=== PATIENT | male | born 1965 | race Caucasian/White ===

== ENCOUNTER 2017-08-10 08:38 | Day surgery (SDC) | payer OTHER ==
[2017-08-10] MEDS ORDERED: Lactated Ringers 1,000 ML IV ONE (08:39)
[2017-08-10] MEDS ORDERED: XYLOCAINE-MPF 1% 5ML SDV IJ ONE (08:39)
[2017-08-10] MEDS ORDERED: Marcaine 0.5% SDV 10 ML IJ ONE (08:39)
[2017-08-10] MEDS ORDERED: LIDOCAINE HCL 2% 100 MG/5 ML IJ ONE (08:39)
[2017-08-10] MEDS ORDERED: DIPRIVAN 200 MG/20 ML IV ONE (08:39)
--- NOTE | 2017-08-10 13:24 | XRAY ---
Indication: Left L4-L5 MBB. Intraoperative fluoroscopy was provided for 35 seconds. 2 digital spot images submitted for interpretation demonstrates 2 posterior spinal needle tips projecting over the left L3-L4 and L4-L5 facets. Correlate with intraoperative findings/report. Incidental bilateral L4-S1 posterior spinal hardware.
--- NOTE | 2017-08-10 13:32 | XRAY ---
35 seconds fluoroscopy time in surgery for left facet L4-L5 MBB.
--- NOTE | 2017-08-11 08:36 | OP ---
DATE OF PROCEDURE: 08/10/2017 1046 SURGEON: Dominique King D.O. PREOPERATIVE DIAGNOSIS: Degenerative lumbar spine disease, spondylosis, low back pain. POSTOPERATIVE DIAGNOSIS: Degenerative lumbar spine disease, spondylosis, low back pain. PROCEDURE PERFORMED: Left L4, L3 medial branch block under fluoroscopic guidance. DESCRIPTION OF THE PROCEDURE: The patient was taken to the operating room and placed in the prone position on the table. Skin at the injection site was prepped and draped in sterile fashion. Under fluoroscopy, bony anatomy of the targeted injection site was visualized. Induction agent was given as per anesthesia while vital signs were monitored. Local anesthetic agent of 0.5 cc of 1% lidocaine preservative free was introduced to anesthetize the skin and the subcutaneous tissue through the injection site. Under fluoroscopic guidance, a #20 gauge standard spinal needle was advanced into the target medial branch through the oblique approach. The preservative free 0.5 cc of 1% lidocaine and 0.5 cc of 0.25% Marcaine were injected into each of the targeted medial branch nerve. After the needle was being removed, the skin was cleansed with alcohol and then a bandage was applied. No complications or adverse consequences were observed. The patient was returned to the holding area until stabilized before discharge to home. After the procedure there is 70 to 80% pain reduction after the procedure. The patient will be followed up within ten days after the injection for re-evaluation.
== END 2017-08-10 11:35 | disposition home or self-care (01) ==
LOC: SDC-PAIN 08:38
PROVIDERS: ATTEND Internal Medicine
DX: M46.96 Unspecified inflammatory spondylopathy, lumbar region (principal); M96.1 Postlaminectomy syndrome, not elsewhere classified; M62.838 Other muscle spasm; Z79.891 Long term (current) use of opiate analgesic
CPT/HCPCS: 64493; 64494; 72020; 77003; J2704

== ENCOUNTER 2017-09-14 07:34 | Day surgery (SDC) | payer OTHER ==
[2017-09-14] MEDS ORDERED: Xylocaine 1% Vial 30 ML PF IJ ONE (07:35)
[2017-09-14] MEDS ORDERED: Marcaine 0.5% SDV 10 ML IJ ONE (07:35)
[2017-09-14] MEDS ORDERED: DIPRIVAN 200 MG/20 ML IV ONE (07:35)
[2017-09-14] MEDS ORDERED: Lactated Ringers 1,000 ML IV ONE (09:55)
--- NOTE | 2017-09-14 13:08 | XRAY ---
Indication: Left L4-L5 MBB. Intraoperative fluoroscopy was provided for 58 seconds. 3 digital spot images submitted for interpretation demonstrates 2 posterior spinal needle tips projecting over the left L3-L4 and L4-L5 facets. Correlate with intraoperative findings/report. Incidental bilateral L4-S1 posterior spinal hardware.
--- NOTE | 2017-09-15 08:12 | OP ---
DATE OF PROCEDURE: 09/14/2017 0857 SURGEON: Dominique King D.O. PREOPERATIVE DIAGNOSIS: Degenerative lumbar spine disease, spondylosis, low back pain. POSTOPERATIVE DIAGNOSIS: Degenerative lumbar spine disease, spondylosis, low back pain. PROCEDURE PERFORMED: Left L4 L3 medial branch block under fluoroscopic guidance. DESCRIPTION OF THE PROCEDURE: The patient was taken to the operating room and placed in the prone position on the table. Skin at the injection site was prepped and draped in sterile fashion. The local anesthetic agent used is 9 cc local anesthetic agent of 1% lidocaine to anesthetize skin. . Under fluoroscopic guidance, a #20 gauge standard spinal needle was advanced into the target medial branch through the oblique approach. Under fluoroscopy, bony anatomy of the targeted injection site was visualized. Induction agent was given as per anesthesia while vital signs were monitored. The medications used for this block includes 0.5 cc of half volume of preservative-free 1% lidocaine plus mixed half volume 0.5 cc of Marcaine. After the needle was being removed skin was cleansed with alcohol and then a bandage was applied. No complications or adverse consequences were observed. The patient was returned to the holding area until stabilized before discharge to home. Preoperative pain level is 10 out of 10 and postoperative pain level is 0 out of 10. The patient will be followed up within ten days after the injection for re-evaluation.
== END 2017-09-14 09:50 | disposition home or self-care (01) ==
LOC: SDC-PAIN 07:34
PROVIDERS: ATTEND Internal Medicine
DX: M25.512 Pain in left shoulder (principal); M46.96 Unspecified inflammatory spondylopathy, lumbar region; M96.1 Postlaminectomy syndrome, not elsewhere classified; M54.5 Low back pain; M62.838 Other muscle spasm; Z79.891 Long term (current) use of opiate analgesic
CPT/HCPCS: 64493; 64494; 72020; 77003; 82962; J2001; J2704

== ENCOUNTER 2017-12-21 07:47 | Day surgery (SDC) | payer MEDICARE ==
[2017-12-21] MEDS ORDERED: Depo-Medrol 40 MG/ML IM ONE (07:48)
[2017-12-21] MEDS ORDERED: DIPRIVAN 200 MG/20 ML IV ONE (07:48)
[2017-12-21] MEDS ORDERED: LIDOCAINE HCL 2% 100 MG/5 ML IJ ONE (07:48)
[2017-12-21] MEDS ORDERED: Lactated Ringers 1,000 ML IV ONE (08:34)
--- NOTE | 2017-12-21 12:11 | XRAY ---
Indication: Bilateral L3-S1 MBB. Intraoperative fluoroscopy was provided for 1 minutes 6 seconds. 2 digital spot images submitted for interpretation demonstrates posterior spinal needles with the tips projecting over the expected course of the L3, L4, L5, and S1 nerve roots bilaterally. Correlate with intraoperative findings/report. Incidental bilateral L4-S1 posterior spinal hardware.
--- NOTE | 2017-12-22 17:09 | XRAY ---
1 minute 6 seconds fluoroscopy used in surgery for bilateral L3, L4, L5, and S1 MBB.
== END 2017-12-21 10:00 | disposition home or self-care (01) ==
LOC: SDC-PAIN 07:47
PROVIDERS: ATTEND Psychiatry & Neurology Pain Medicine
DX: M54.5 Low back pain (principal); M47.816 Spondylosis without myelopathy or radiculopathy, lumbar region; M46.96 Unspecified inflammatory spondylopathy, lumbar region
CPT/HCPCS: 64493; 64494; 64495; 72100; 77002; J1030; J2704

== ENCOUNTER 2018-02-22 07:56 | Day surgery (SDC) | payer MEDICARE ==
[2018-02-22] MEDS ORDERED: DIPRIVAN 200 MG/20 ML IV ONE (07:57)
[2018-02-22] MEDS ORDERED: Depo-Medrol 40 MG/ML IM ONE (07:57)
[2018-02-22] MEDS ORDERED: Marcaine 0.5% SDV 10 ML IJ ONE (07:57)
--- NOTE | 2018-02-22 10:36 | XRAY ---
Indication: L3-S1 MBB. Intraoperative fluoroscopy was provided for 28 seconds. 2 digital spot images submitted for interpretation demonstrates posterior spinal needle tips projecting over the expected course of the left L3-S1, right L4, and right L5 nerve roots. Correlate with intraoperative findings/report. Incidental bilateral L4-S1 posterior spinal hardware.
--- NOTE | 2018-02-22 10:38 | XRAY ---
28 seconds fluoroscopy time in surgery for L3-S1 MBB.
[2018-02-22] MEDS ORDERED: Lactated Ringers 1,000 ML IV ONE (10:51)
== END 2018-02-22 09:48 | disposition home or self-care (01) ==
LOC: SDC-PAIN 07:56
PROVIDERS: ATTEND Psychiatry & Neurology Pain Medicine
DX: M54.5 Low back pain (principal); E11.9 Type 2 diabetes mellitus without complications
CPT/HCPCS: 64493; 64494; 64495; 72020; 77003; 82962; J1030; J2704

== ENCOUNTER 2018-04-05 07:52 | Day surgery (SDC) | payer MEDICARE ==
[2018-04-05] MEDS ORDERED: Sodium Chloride 0.9(Preservative Free) 10 ML IJ ONE (07:53)
[2018-04-05] MEDS ORDERED: Depo-Medrol 40 MG/ML IM ONE (07:53)
[2018-04-05] MEDS ORDERED: DIPRIVAN 200 MG/20 ML IV ONE (07:53)
--- NOTE | 2018-04-05 11:00 | XRAY ---
Indication: Left L4-S1 DEUCE. Intraoperative fluoroscopy was provided for 45 seconds. 3 digital spot images submitted for interpretation demonstrates posterior spinal needle tips projecting over the expected course of the left L4 and L5 nerve roots. Small amount of contrast injected for needle tip placement. Correlate with intraoperative findings/report. Incidental bilateral L4-S1 posterior spinal hardware.
--- NOTE | 2018-04-05 11:02 | XRAY ---
45 seconds fluoroscopy time in surgery for left L4-S1 DEUCE.
[2018-04-05] MEDS ORDERED: Lactated Ringers 1,000 ML IV ONE (14:42)
== END 2018-04-05 09:37 | disposition home or self-care (01) ==
LOC: SDC-PAIN 07:52
PROVIDERS: ATTEND Psychiatry & Neurology Pain Medicine
DX: M54.16 Radiculopathy, lumbar region (principal); E11.9 Type 2 diabetes mellitus without complications; I10 Essential (primary) hypertension; K21.9 Gastro-esophageal reflux disease without esophagitis
CPT/HCPCS: 64483; 64484; 72020; 77003; 82962; J1030; J2704; Q9966

== ENCOUNTER 2018-09-13 07:50 | Day surgery (SDC) | payer MEDICARE ==
[2018-09-13] MEDS ORDERED: DIPRIVAN 200 MG/20 ML IV ONE (07:51)
[2018-09-13] MEDS ORDERED: Ketamine HCl 50 MG/ML IV ONE (07:51)
[2018-09-13] MEDS ORDERED: Marcaine 0.5% SDV 10 ML IJ ONE (07:51)
[2018-09-13] MEDS ORDERED: Xylocaine 1% Vial 30 ML PF IJ ONE (07:51)
[2018-09-13] MEDS ORDERED: Depo-Medrol 40 MG/ML IM ONE (07:51)
[2018-09-13] MEDS ORDERED: Lactated Ringers 1,000 ML IV ONE (14:21)
--- NOTE | 2018-09-13 16:16 | XRAY ---
32 seconds fluoroscopy time in surgery for left L3-S1 RFA.
--- NOTE | 2018-09-14 04:33 | XRAY ---
Indication: L3-S1 RFA. Intraoperative fluoroscopy was provided for 32 seconds. 5 digital spot images submitted for interpretation demonstrate posterior needle tips projected posterior lateral to L3, L4, L5, and S1 on the left. I see evidence of lower lumbar fusion from L4-S1. Correlate with intraoperative findings/report.
== END 2018-09-13 10:10 | disposition home or self-care (01) ==
LOC: SDC-PAIN 07:50
PROVIDERS: ATTEND Psychiatry & Neurology Pain Medicine
DX: M47.816 Spondylosis without myelopathy or radiculopathy, lumbar region (principal); E11.9 Type 2 diabetes mellitus without complications; I10 Essential (primary) hypertension; K21.9 Gastro-esophageal reflux disease without esophagitis; E78.00 Pure hypercholesterolemia, unspecified
CPT/HCPCS: 64635; 64636; 72100; 77002; 82962; J1030; J2001; J2704